=== PATIENT | male | born 1970 | race Caucasian/White ===

== ENCOUNTER 2018-08-09 16:31 | Emergency (ER) | payer SELFPAY ==
[2018-08-09 16:36] VITALS: BP 124/64; PULSE 100; TEMP 101.9; BMI 26.6
[2018-08-09] MEDS ORDERED: IBUPROFEN 600 MG TABLET (FP) PO ONE ×2 (17:37→17:41)
--- NOTE | 2018-08-09 17:37 | PDOC ---
History of Present Illness - General Chief Complaint: Respiratory Stated Complaint: FEVER/BODY PAINS Time Seen by Provider: 08/09/18 17:20 History Source: Patient, Friend Exam Limitations: No Limitations - History of Present Illness Initial Comments: 08/09/18 17:37 Patient is here with 2 days of high fevers cough, headache, earache and throat pain, and general body aches. 08/09/18 17:40 Timing/Duration: reports: getting worse Severity: reports: moderate Associated Symptoms: reports: chest pain/soreness, earache, fever/chills, lightheadedness, nasal congestion, nasal drainage, sore throat. denies: wheezing Past History - Travel Traveled outside of the country in the last 30 days: No Close contact w/someone who was outside of country & ill: No - Past Medical History Allergies/Adverse Reactions: Allergies Allergy/AdvReac Type Severity Reaction Status Date / Time No Known Allergies Allergy Verified 08/09/18 16:36 Home Medications: Ambulatory Orders NK [No Known Home Medication] 08/09/18 COPD: No - Suicide/Smoking/Psychosocial Hx Smoking History: Never smoked Review of Systems - Review of Systems Able to Perform ROS?: Yes Is the patient limited Swedish proficient: Yes Constitutional: Yes: Symptoms Reported, See HPI, Fever, Malaise HEENTM: Yes: See HPI, Ear Pain, Nose Congestion, Throat Swelling. No: Symptoms Reported Respiratory: Yes: Symptoms reported, See HPI, Cough Cardiac (ROS): No: Symptoms Reported Musculoskeletal: Yes: Symptoms Reported, See HPI, Muscle Pain All Other Systems: Reviewed and Negative *Physical Exam - Vital Signs Last Vital Signs Temp Pulse Resp BP Pulse Ox 101.9 F H 100 H 20 124/64 97 08/09/18 16:34 08/09/18 16:34 08/09/18 16:34 08/09/18 16:34 08/09/18 16:34 - Physical Exam Comments: 08/09/18 17:41 GENERAL: [The child is awake, alert, and appropriately interactive.] EYES: [The pupils are equal, round, and reactive to light, with clear, conjunctiva.but glassy] NOSE: [The nose with clear drainage EARS: [The ear canals and tympanic membranes are congested but landmarks easily visualed ] THROAT: [The oropharynx is clear with erythema, no exudates. The mucous membranes are moist.] NECK: [The neck is supple with mildly tender adenopathy, no menigemous] CHEST: [The lungs are coarse but clear without crackles, or wheezes.] HEART: [Heart is regular rhythm, with normal S1 and S2, no murmurs.] ABDOMEN: [The abdomen is soft and nontender with normal bowel sounds. There is no organomegaly and no mass. There is no guarding or rebound.] EXTREMITIES: [Extremities are normal.] NEURO: [Behavior is normal for age.cranky but easily,m Tone is normal.] SKIN: [Skin is unremarkable without rash or swelling. There is no bruising, and there are no other signs of injury.] General Appearance: Yes: Nourished, Appropriately Dressed, Apparent Distress, Mild Distress, Moderate Distress Moderate Sedation - Procedure Monitoring Vital Signs: Procedure Monitoring Vital Signs Temperature 101.9 F H 08/09/18 16:34 Pulse Rate 100 H 08/09/18 16:34 Respiratory Rate 20 08/09/18 16:34 Blood Pressure 124/64 08/09/18 16:34 O2 Sat by Pulse Oximetry (%) 97 08/09/18 16:34 Progress Note - Progress Note Progress Note: Upper respiratory infection, probable influenza however patient has no insurance and opts not take Tamiflu. We'll treat conservatively *DC/Admit/Observation/Transfer Diagnosis at time of Disposition: Influenzal acute upper respiratory infection - Discharge Dispostion Disposition: HOME Condition at time of disposition: Stable Decision to Admit order: No - Referrals - Patient Instructions Printed Discharge Instructions: DI for Viral Upper Respiratory Infection -- Adult Additional Instructions: Rest, drink lots of fluids: Teas, water, soups, Pedialyte Saltwater gargles Steamy showers/seem to face break up mucus Old-fashioned treatments help! Avoid contact with others until fevers and cough resolved as this is very contagious Lots of handwashing and good hygiene Continue [id number] medications for symptomatic relief Tylenol or Motrin for fever and pain Followup with private physician in one to 2 days as needed or if worsening Return to emergency department for worsened symptoms, fevers, dehydration Influenza takes between 5 and 7 days for resolution To not participate in any activity, work, or school until fevers and cough are gone for at least one da - Post Discharge Activity Forms/Work/School Notes: Back to Work
== END 2018-08-09 17:46 | disposition home or self-care (01) ==
LOC: JERFT 16:31
DX: J11.1 Influenza due to unidentified influenza virus with other respiratory manifestations (principal)
CPT/HCPCS: 99281-25